=== PATIENT | female | born 1955 | race Caucasian/White ===

== ENCOUNTER 2025-10-04 08:37 | Emergency (ER) | payer MEDICARE, OTHER, SELFPAY ==
[2025-10-04 08:49] LABS: Glucose - Point of Care 139 mg/dl (70-99)
[2025-10-04] MEDS: DILAUDID 0.5 MG IV (11:37)
[2025-10-04] MEDS: PROTONIX IV 40 MG IV (11:39)
[2025-10-04 11:44] VITALS: BMI 27.6
[2025-10-04 11:47] VITALS: BP 115/69
[2025-10-04 11:57] LABS: Hematocrit 41.2 % (37.0-47.0); Hemoglobin 13.5 g/dL (12.0-16.0); Mean Corp Hgb Conc. 32.8 g/dL (33.0-37.0); Mean Corpuscular Volume 79.7 fL (81.0-99.0); Nucleated Red Blood Cells % 0 %; Platelet Count 164 10^3/uL (130-400); Red Cell Dist. Width 14.9 % (11.5-14.5)
[2025-10-04 12:00] VITALS: BP 111/78
[2025-10-04 12:04] LABS: INR 0.97; PT 13.3 Sec (11.4-14.6)
[2025-10-04 12:05] LABS: APTT 28.7 Sec (23.4-35.0)
[2025-10-04 12:11] LABS: ALT (SGPT) 16 U/L (0-35); AST (SGOT) 22 U/L (14-36); Albumin 3.8 g/dl (3.5-5.0); Alkaline Phosphatase 58 U/L (38-126); Blood Urea Nitrogen 16 mg/dl (7-17); Calcium 9.1 mg/dl (8.4-10.2); Carbon Dioxide 26 mmol/L (22-30); Chloride 106 mmol/L (98-107); Estimated Creatinine Clearance 83 ml/min; Glucose 110 mg/dl (70-99); Lipase 159 U/L (23-300); Potassium 4.0 mmol/L (3.5-5.1); Sodium 137 mmol/L (135-145); Total Protein 6.2 g/dl (6.3-8.2); eGFR > 60.00
--- NOTE | 2025-10-04 12:12 | ED.GENMED ---
History of Present Illness
General
Chief Complaint: Abdominal Symptoms
Source: patient, spouse and family
Exam Limitations: none
Time Seen by Provider: 10/04/25 10:39
Nursing documentation reviewed up to this point in time: agreed with
History of Present Illness
History of Present Illness:
69-year-old female with diabetes GERD status post cholecystectomy presents with left upper abdominal pain for 5 days ago usually gets better with Carafate and PPI not getting better she did drive from [facility] to visit her daughter locally, pain
is worsening every day associate with some loose black stool tells me she has iron deficiency, think that sounds like a mail-in stool study recently as prescribed an NSAID does not use it very much due to GI issues
Past History
Past History
ED Past Medical History: GERD, HTN and NIDDM
ED Past Surgical History: Cholecystectomy and Gynecological
Social History
Tobacco: Non-smoker
Alcohol: None
Drug: None
Personal:
Living: with family
Employment: Retired
Phy Exam
Physical Exam
Physical Exam:
Physical Exam
General: no apparent distress, not acutely ill
Neck: No jaundice
Heart: s1/s2 regular rate and rhythm, no murmur. equal radial pulses.
Lungs: no acute respiratory distress. clear bilaterally
Abdomen: Tender in the left upper abdomen(worsened with movement and sitting)
Rectal: Brown formed guaiac negative stool
Neuro: alert and oriented. no focal neurological deficits
Skin: no rash
Psychiatric: well kept. interactive and cooperative
Extremities: no edema.
Course
Orders/Labs/Results
Orders:
Orders
10/04/25 11:26
Cardiac Monitoring- Treatment ONCE
IV Insert/Care/Rem.- Treatment PRN
HYDROmorphone [Dilaudid] 0.5 mg IV NOW STA
Pantoprazole [Protonix IV] 40 mg IV NOW STA
10/04/25 11:27
Electrocardiogram (*1) Stat
Reason for Study: Abdominal Pain
CT Abd/Pel (IV only)-DH only Urgent
Comment:
Reason For Exam: luq pain
EKG- Treatment ONCE
10/04/25 11:43
Type+Screen Urgent
Complete Blood Count/With Diff Urgent
Comprehensive Metabolic Panel Urgent
Lipase Urgent
PTT Urgent
Prothrombin Time Urgent
Troponin I Urgent
10/04/25 13:42
Ketorolac [Toradol] 15 mg IV NOW STA
Oxycodone/Acetaminophen [Percocet 5/325] 1 tablet PO NOW STA
Abnormal Lab Results
10/04/25 10/04/25
08:48 11:43
MCV 79.7 L fL
(81.0-99.0)
MCH 26.1 L pg
(27.0-31.0)
MCHC 32.8 L g/dL
(33.0-37.0)
RDW 14.9 H %
(11.5-14.5)
Lymphocytes % 18.7 L %
(20.5-51.1)
Creatinine 0.5 L mg/dL
(0.6-1.0)
Glucose 110 H mg/dl
(70-99)
Total Protein 6.2 L g/dl
(6.3-8.2)
POC Glucose 139 H mg/dl
(70-99)
10/04/25 11:43
10/04/25 11:43
Vital Signs
Initial and Last Documented VS:
Initial Vital Signs
Temp Pulse Resp Pulse Ox
98.4 F 80 16 98
10/04/25 08:42 10/04/25 08:42 10/04/25 08:42 10/04/25 08:42
Last Documented Vital Signs
Temp Pulse Resp BP Pulse Ox
98.4 F 78 17 118/72 96
10/04/25 08:42 10/04/25 13:30 10/04/25 13:30 10/04/25 13:16 10/04/25 13:30
MDM/Problems Addressed
Differential Diagnosis Includes:
Gastritis duodenitis GI bleeding diverticulitis muscle strain
MDM/Problems Addressed:
Left upper abdominal
Chronic conditions affecting care:
GERD strain
Chronic conditions affecting care: Previous abdomnial surgery
Acute Exacerbation and/or Progression of Chronic Illness:
GERD muscle strain
Acute Exacerbation and/or Progression of Chronic Illness: Previous abdomnial surgery
*Pulse Oximetry
SaO2: 96
ED Attending Note
-
Portions of this chart may have been created with voice recognition software.� Occasional wrong word or��sound alike� substitutions may have occurred due to the inherent limitations of voice recognition software.
Discharge Plan
Departure
Patient with high blood pressure during this ER visit?: No
Condition: Good
Discharge Problem:
Abdominal wall pain
Prescriptions:
New
metaxalone 800 mg tablet
800 mg PO QID PRN (Reason: muscle pain) Qty: 20 0RF
oxycodone-acetaminophen [Percocet] 5-325 mg tablet
1 tab PO Q6HPRN PRN (Reason: pain) Qty: 14 0RF
Referrals:
Iris Noland CRNP [Family Provider, General]
Interventions
Interventions:
*Risk Screen - Suicide Last Done: 10/04/25 08:42
*General Assessment Last Done: 10/04/25 08:42
*Neglect/Abuse Screening Last Done: 10/04/25 08:42
*ED- Fall Risk Assessment Last Done: 10/04/25 11:44
*ED COVID-19 Vaccine History Last Done: 10/04/25 08:42
*ED Influenza Vaccine History Last Done: 10/04/25 08:42
IJ-Gvovib-Pxdnehzhtg Assessment Last Done: 10/04/25 11:58
Discharge Date and Time
Print Language: [id number]
[2025-10-04 12:30] LABS: Troponin I < 0.012 ng/ml
[2025-10-04 13:16] VITALS: BP 118/72
[2025-10-04] MEDS: TORADOL 15 MG IV (13:48)
[2025-10-04] MEDS: PERCOCET 5/325 1 TABLET PO (13:48)
[2025-10-04 14:00] VITALS: BP 131/74
== END 2025-10-04 14:33 | disposition home or self-care (01) ==
LOC: EMR 08:37
PROVIDERS: EMERGENCY PHYSICIAN Emergency Medicine; FAMILY PHYSICIAN Nurse Practitioner
DX: R10.12 Left upper quadrant pain (principal); E11.9 Type 2 diabetes mellitus without complications; I10 Essential (primary) hypertension; E61.1 Iron deficiency; K21.9 Gastro-esophageal reflux disease without esophagitis; Z79.84 Long term (current) use of oral hypoglycemic drugs; Z79.4 Long term (current) use of insulin
CPT/HCPCS: 99284; 96374; 96375 ×2; 74177; 80053; 82962; 83690; 84484; 85025; 85610; 85730; 86850; 86900; 86901; 93005; Q9967